=== PATIENT | female | born 1980 | race African-American/Black ===

== ENCOUNTER 2019-07-02 06:00 | Inpatient (IN) | payer OTHER ==
[2019-07-02 07:00] VITALS: BMI 37.8
[2019-07-02] MEDS ORDERED: PHENYLEPHRINE HCL 10 MG/1 ML SINGLE DOSE VIAL ONE (07:21)
[2019-07-02] MEDS ORDERED: SUCCINYLCHOLINE CHLORIDE 200 MG/10 ML SYRINGE ONE (07:21)
[2019-07-02] MEDS ORDERED: PROPOFOL 20 ML ONE (07:21)
[2019-07-02] MEDS ORDERED: ePHEDrine SULFATE 50 MG/1 ML AMPULE ONE (07:21)
[2019-07-02] MEDS ORDERED: morphine SULFATE/PF 0.5 MG/ML (2cc Syringe - QUVA) ONE (07:21)
[2019-07-02] MEDS ORDERED: SODIUM CHLORIDE 0.9% P/F 10 ML VIAL IJ ONE (07:24)
[2019-07-02] MEDS ORDERED: ceFAZolin SODIUM 1 GM VIAL ONE (07:24)
[2019-07-02] MEDS ORDERED: OXYTOCIN 10 UNITS/ML VIAL ONE (07:27)
[2019-07-02] MEDS ORDERED: ACETAMINOPHEN 325 MG TABLET (FP) PO PRN (07:40)
[2019-07-02] MEDS ORDERED: IBUPROFEN 600 MG TABLET (FP) PO PRN (07:40)
[2019-07-02] MEDS ORDERED: ONDANSETRON 4 MG/2 ML VIAL IVPUSH PRN (07:40)
[2019-07-02] MEDS ORDERED: CITRIC ACID/SODIUM CITRATE 30 ML UNIT-DOSE CUP PO ONE ×2 (08:00→10:20)
[2019-07-02] MEDS ORDERED: ELECTROLYTE-148 SOLN 1,000 ML IV ONE (08:00)
[2019-07-02] MEDS ORDERED: OXYTOCIN 20 UNITS in 0.9% NS 40 UNIT/2,000 ML INFUS.BAG IV ONE (08:00)
[2019-07-02] MEDS ORDERED: ELECTROLYTE-148 SOLN 1,000 ML IV SCH (09:00)
[2019-07-02] MEDS ORDERED: METHYLERGONOVINE MALEATE 0.2 MG/1 ML AMP IM PRN (10:21)
[2019-07-02] MEDS ORDERED: oxyCODONE HCL 5 MG TABLET PO PRN ×2 (10:21)
[2019-07-02] MEDS ORDERED: SENNOSIDES/DOCUSATE COMBO (SENNA PLUS) TABLET (UD) PO PRN (10:21)
--- NOTE | 2019-07-02 10:29 | HP ---
Past Medical History - Admission Chief Complaint: repeat lt cs History of Present Illness: repeat lt c s History Source: Patient Limitations to Obtaining History: No Limitations - Past Medical History CRM MARKETING EXECUTIVE: No: Alzheimer's, CVA, Dementia, Migraine, Multiple Sclerosis, Peripheral Neuropathy, Parkinson's, Seizure, Syncope, TIA, Vertigo, Other Cardiovascular: No: AFIB, Aneurysm, Aortic Insufficiency, Aortic Stenosis, CAD, CHF, Deep Vein Thrombosis, HTN, Hyperlipdemia, MA, Mitral Insufficiency, Mitral Stenosis, Murmur, Pulmonary Hypertension, Other Pulmonary: No: Asthma, Bronchitis, Cancer, COPD, O2 Dependent, Pneumonia, Previously Intubated, Pulmonary Embolus, Pulmonary Fibrosis, Sleep Apnea, Other Gastrointestinal: No: Ascites, Cancer, Constipation, Crohn's Disease, Diverticulitis, Diverticulosis, Esophageal Varices, Gastritis, GERD, GI Bleed, Hemorrhoids, Hiatal Hernia, Inflamatory Bowel Disease, Irritable Bowel Disease, Pancreatitis, Peptic Ulcer Disease, Ulcerative Colitis, Other Hepatobiliary: No: Cirrhosis, Cholelithiasis, Cholecystitis, Choledocholithiasis , Hepatitis A, Hepatitis B, Hepatitis C, Other Renal/: No: Renal Failure, Renal Inusuff, BPH, Cancer, Hematuria, Hemodialysis , Neurogenic Bladder, Renal Calculi, UTI, Other Reproductive: No: Ectopic , Endometriosis, Fibroids, PID, Polycystic Ovary Syndrome, Postmenopausal, Other ...: 3 ...Para: 1 ...Term: 1 ...: 0 ...Spon : 0 ...Induced : 0 ...Multiple Gestation: 0 ...EDC by Sono: 07/16/19 Heme/Onc: No: Anemia, B12 Deficiency, Bleeding Disorder, Cancer, Current Chemotherapy, Current Radiation Therapy, Hemochromatosis, Hypercoaguable State, Myeloproliferative Synd, Sickle Cell Disease, Sickle Cell Trait, Thrombocytopenia, Other Infectious Disease: No: AIDS, C-Diff, Herpes Zoster, HIV, MRSA, STD's, Tuberculosis, VREF, Other Psych: No: Addictions, Anxiety, Bipolar, Depression, Panic, Psychosis, Schizophrenia, Other Rheumatology: No: Fibromyalgia, Gout, Lupus, Rheumatoid Arthritis, Sarcoidosis, Vasculitis, Other ENT: No: Allergic Rhinitis, Sinusitis, Other Endocrine: No: [place]'s Disease, Rudolph's Disease, Diabetes Insipidus, Diabetes Mellitus, Hyperparathyroidism, Hyperthyroidism, Hypothyroidism, Osteopenia, SIADH, Other Dermatology: No: Basal Cell, Cellulitis, Eczema, Melanoma, Psoriasis, Squamous Cell, Other - Past Surgical History Past Surgical History: Yes: Hx Myomectomy: No Hx Transabdominal Cerclage: No - Advance Directives Advance Directives: Yes: Living Will - Smoking History Smoking history: Never smoked Have you smoked in the past 12 months: No - Alcohol/Substance Use Hx Alcohol Use: No History of Substance Use: reports: None - Social History Usual Living Arrangement: Yes: With Spouse Do you think of yourself as: Straight/Heterosexual ADL: Independent History of Recent Travel: No Home Medications - Allergies Allergies/Adverse Reactions: Allergies Allergy/AdvReac Type Severity Reaction Status Date / Time No Known Allergies Allergy Verified 07/02/19 06:38 - Home Medications Home Medications: Ambulatory Orders Labetalol HCl [Normodyne -] 200 mg PO BID 07/02/19 Vitamins (Sjr) - 1 tab PO DAILY 07/02/19 Valacyclovir HCl [Valtrex -] 1,000 mg PO DAILY 07/02/19 Family Medical History Family History: Denies Review of Systems - Review of Systems Constitutional: reports: No Symptoms Eyes: reports: No Symptoms HENT: reports: No Symptoms Neck: reports: No Symptoms Cardiovascular: reports: No Symptoms Respiratory: reports: No Symptoms Gastrointestinal: reports: No Symptoms Genitourinary: reports: No Symptoms Breasts: reports: No Symptoms Reported Musculoskeletal: reports: No Symptoms Integumentary: reports: No Symptoms Neurological: reports: No Symptoms Endocrine: reports: No Symptoms Hematology/Lymphatic: reports: No Symptoms Psychiatric: reports: No Symptoms Physical Exam - Maternity Vital Signs: Vital Signs Temperature 98.1 F 07/02/19 07:21 Pulse Rate 81 07/02/19 08:00 Respiratory Rate 18 07/02/19 08:00 Blood Pressure 139/86 07/02/19 08:00 O2 Sat by Pulse Oximetry (%) Constitutional: Yes: Well Nourished, No Distress, Calm Eyes: Yes: WNL, Conjunctiva Clear, EOM Intact HENT: Yes: WNL, Atraumatic, Normocephalic Neck: Yes: WNL, Supple, Trachea Midline Cardiovascular: Yes: WNL, Regular Rate and Rhythm Lungs: Clear to auscultation Breast(s): Yes: WNL - Abdominal Exam/OB Fundal Height: 40 Number of Fetuses: Single Presentation: Vertex Contractions: Yes Regularity: Irregular Intensity: Unaware Monitor Mode: External Heart Rate (range): 150 Heart Rate Location: [facility] Category: I Accelerations: Uniform Decelerations: None - Vaginal Exam/OB Vaginal Bleediing: No Speculum Exam: No Dilatation (cm): 1 Effacement (%): 20 Amniotic Membrane Status: Intact Presentation: Vertex/Position Station: -2 - Physical Exam Musculoskeletal: Yes: WNL Extremities: Yes: WNL Edema: Yes Edema: LUE: 1+, RUE: 1+, LLE: 1+, RLE: 1+ Integumentary: Yes: WNL Deep Tendon Reflex Grade: Normal +2 ...Motor Strength: WNL Psychiatric: Yes: WNL, Alert, Oriented Hemorrhage Risk Assessment - Risk Factors Medium Risk Factors: Yes: Prior , uterine surgery,or multiple laparotomies Risk Score: 1 Risk Level: Medium Risk Assessment/Plan for repeat c s
[2019-07-02] MEDS ORDERED: OXYTOCIN 20 UNITS in 0.9% NS 20 UNIT/1,000 ML INFUS.BAG IV SCH (10:30)
--- NOTE | 2019-07-02 10:31 | OP ---
Operative Note - Note: Operative Date: 07/02/19 Pre-Operative Diagnosis: repeat lt cs Operation: repeat lt c s , lysis of adhesions Findings: adhesions Post-Operative Diagnosis: Same as Pre-op Surgeon: Johnny Dhaliwal Tank Builder And Erector: Neptali Ramachandran Anesthesiologist/KENNEL ATTENDANT: Linda Valenzuela Anesthesia: Spinal Estimated Blood Loss (mls): 700 (lysis of adhesions ) Operative Report Dictated: Yes
[2019-07-02] MEDS: LABETALOL HCL 200 MG TABLET (FP) PO SCH ×2 (11:04→23:28)
[2019-07-02] MEDS: IBUPROFEN 800 MG/8 ML IJ IVPB PRN (15:00)
[2019-07-03] MEDS: IBUPROFEN 800 MG/8 ML IJ IVPB PRN (02:48)
[2019-07-03 08:00] LABS: BASO % 0.5 % (0-2.0); HEMATOCRIT 30.4 % (32.4-45.2); LYMPH % 13.7 % (8-40); MCH 30.7 pg (25.7-33.7); MCHC 36.3 g/dl (32.0-36.0); MEAN CELL VOLUME 84.7 fl (80-96); MEAN PLT VOLUME 9.6 fl (7.5-11.1); MONO % 9.3 % (3.8-10.2); NEUT % 74.5 % (42.8-82.8); PLATELET COUNT 181 K/MM3 (134-434); RBC 3.58 M/mm3 (3.60-5.2); RDW 14.4 % (11.6-15.6); WHITE BLOOD COUNT 8.6 K/mm3 (4.0-10.0)
[2019-07-03] MEDS ORDERED: DIPHTH,PERTUSS(ACELL),TET 0.5 ML DISP.SYRIN IM ONE (10:00)
[2019-07-03] MEDS: ACETAMINOPHEN 325 MG TABLET (FP) PO PRN ×3 (10:15→23:10)
[2019-07-03] MEDS: IBUPROFEN 600 MG TABLET (FP) PO PRN ×3 (10:16→23:09)
[2019-07-03] MEDS: LABETALOL HCL 200 MG TABLET (FP) PO SCH ×2 (10:19→22:55)
[2019-07-03] MEDS ORDERED: BISACODYL 10 MG SUPP.RECT RC PRN (10:21)
[2019-07-03] MEDS: SIMETHICONE 80 MG TAB.CHEW (FP) PO PRN ×3 (10:24→23:09)
[2019-07-03] MEDS: ENOXAPARIN NA (PORCINE) 40 MG/0.4 ML DISP.SYRIN SQ SCH (10:28)
--- NOTE | 2019-07-03 14:38 | PN ---
Post Progress Note Post Day: 1 Type of Delivery: Repeat C/S Vital Signs: Vital Signs Temperature 98 F 07/03/19 09:00 Pulse Rate 70 07/03/19 09:00 Respiratory Rate 18 07/03/19 09:00 Blood Pressure 136/84 07/03/19 09:00 O2 Sat by Pulse Oximetry (%) 99 07/02/19 11:30 Breast Exam: Yes: Soft Uterus: Yes: Fundus Firm Incision: Yes: Dressing dry and intact, Sutures intact Abdomen/GI: Yes: Abdomen soft, Passing flatus, Tolerating PO Lochia: Yes: Serosa Lochia, amount: Small Extremities: Yes: Calves non-tender Perineum: Yes: Intact Activity: Ambulating - Labs Labs: CBC WBC 8.6 K/mm3 (4.0-10.0) 07/03/19 07:40 RBC 3.58 M/mm3 (3.60-5.2) L 07/03/19 07:40 Hgb 11.0 GM/dL (10.7-15.3) 07/03/19 07:40 Hct 30.4 % (32.4-45.2) L 07/03/19 07:40 MCV 84.7 fl (80-96) 07/03/19 07:40 MCH 30.7 pg (25.7-33.7) 07/03/19 07:40 MCHC 36.3 g/dl (32.0-36.0) H 07/03/19 07:40 RDW 14.4 % (11.6-15.6) 07/03/19 07:40 Plt Count 181 K/MM3 (134-434) 07/03/19 07:40 MPV 9.6 fl (7.5-11.1) 07/03/19 07:40 Absolute Neuts (auto) 6.4 K/mm3 (1.5-8.0) 07/03/19 07:40 Neutrophils % 74.5 % (42.8-82.8) D 07/03/19 07:40 Lymphocytes % 13.7 % (8-40) D 07/03/19 07:40 Monocytes % 9.3 % (3.8-10.2) 07/03/19 07:40 Eosinophils % 2.0 % (0-4.5) 07/03/19 07:40 Basophils % 0.5 % (0-2.0) 07/03/19 07:40 Nucleated RBC % 0 % (0-0) 07/03/19 07:40
--- NOTE | 2019-07-04 08:37 | PN ---
Post Progress Note Post Day: 2 Type of Delivery: Repeat C/S Vital Signs: Vital Signs Temperature 98.4 F 07/03/19 22:00 Pulse Rate 85 07/03/19 22:00 Respiratory Rate 20 07/03/19 22:00 Blood Pressure 114/74 07/03/19 22:00 O2 Sat by Pulse Oximetry (%) 99 07/02/19 11:30 Breast Exam: Yes: Soft Uterus: Yes: Fundus Firm, Fundus below umbilicus, Non-tender Incision: Yes: Dressing dry and intact, Sutures intact Abdomen/GI: Yes: Abdomen soft, Passing flatus, Tolerating PO Lochia: Yes: Serosa Lochia, amount: Small Extremities: Yes: Calves non-tender Perineum: Yes: Intact Activity: Ambulating - Labs Labs: CBC WBC 8.6 K/mm3 (4.0-10.0) 07/03/19 07:40 RBC 3.58 M/mm3 (3.60-5.2) L 07/03/19 07:40 Hgb 11.0 GM/dL (10.7-15.3) 07/03/19 07:40 Hct 30.4 % (32.4-45.2) L 07/03/19 07:40 MCV 84.7 fl (80-96) 07/03/19 07:40 MCH 30.7 pg (25.7-33.7) 07/03/19 07:40 MCHC 36.3 g/dl (32.0-36.0) H 07/03/19 07:40 RDW 14.4 % (11.6-15.6) 07/03/19 07:40 Plt Count 181 K/MM3 (134-434) 07/03/19 07:40 MPV 9.6 fl (7.5-11.1) 07/03/19 07:40 Absolute Neuts (auto) 6.4 K/mm3 (1.5-8.0) 07/03/19 07:40 Neutrophils % 74.5 % (42.8-82.8) D 07/03/19 07:40 Lymphocytes % 13.7 % (8-40) D 07/03/19 07:40 Monocytes % 9.3 % (3.8-10.2) 07/03/19 07:40 Eosinophils % 2.0 % (0-4.5) 07/03/19 07:40 Basophils % 0.5 % (0-2.0) 07/03/19 07:40 Nucleated RBC % 0 % (0-0) 07/03/19 07:40 Assessment/Plan oob
[2019-07-04] MEDS: SIMETHICONE 80 MG TAB.CHEW (FP) PO PRN ×3 (09:38→23:49)
[2019-07-04] MEDS: ACETAMINOPHEN 325 MG TABLET (FP) PO PRN ×3 (09:38→23:50)
[2019-07-04] MEDS: IBUPROFEN 600 MG TABLET (FP) PO PRN ×3 (09:40→23:49)
[2019-07-04] MEDS: ENOXAPARIN NA (PORCINE) 40 MG/0.4 ML DISP.SYRIN SQ SCH (09:40)
[2019-07-04] MEDS: LABETALOL HCL 200 MG TABLET (FP) PO SCH ×2 (09:40→21:18)
--- NOTE | 2019-07-04 16:06 | PATH ---
Surgical Pathology Report Patient Name: PAULO LEONARD Med. Rec. #: [id number] /Age/Gender: 1980 (Age: 38) / F Account: [id number] Location: [facility] OBS/CLAIMS ASSISTANT Taken: 07/02/2019 Received: 07/03/2019 Reported: 07/04/2019 Physicians: Johnny Dhaliwal MD Specimen(s) Received PLACENTA Clinical History , 38 weeks for repeat History of HSV 2-ASCUS, asthma, chronic hypertension Final Diagnosis PLACENTA: THIRD TRIMESTER PLACENTA. TRIVASCULAR CORD. MEMBRANES WITH NO DIAGNOSTIC ABNORMALITIES. Electronically Signed Мария Marrero M.D. Gross Description The specimen is received fresh labeled placenta and is a 351 gram, 14.5 x 12.5 x 2.8 cm. placenta with attached membranes and umbilical cord. The attached membranes are moran, translucent with focal opacities and insert marginally. The umbilical cord measures 37 cm. in length and averages 1.2 cm. in diameter. The cord inserts eccentrically, 1.5 cm. to the nearest margin. No true knots or strictures are identified. Cut surface of the umbilical cord reveals 3 vessels. The surface is hernandez-blue with minimal fibrin deposition and appropriate caliber vessels. The maternal surface is red-brown with focal defects. Sectioning reveals red-brown, spongy parenchyma. No lesions are identified. [employer] sections are submitted in three cassettes as follows: 1- membrane rolls and umbilical cord; 2-3- full thickness sections of placenta. /07/03/2019 saudi/07/03/2019
--- NOTE | 2019-07-04 23:33 | OP ---
DATE OF OPERATION: 07/02/2019 PREOPERATIVE DIAGNOSIS: Repeat transverse section. POSTOPERATIVE DIAGNOSIS: Repeat transverse section. Lysis of adhesions. SURGEON: Johnny Dhaliwal MD. SAFETY COUNCIL DIRECTOR: CARY Haskins. BLOOD LOSS: Approximately 100 mL. PATHOLOGY: Placenta. ANESTHESIA: Spinal. ANESTHESIOLOGIST: Linda Valenzuela MD. INDICATION: A 38-year-old female patient, history of chronic high blood pressure on labetalol, and the patient is 38 weeks , had a previous low transverse section, taken to the OR for repeat low transverse section. All risks and benefits, alternatives explained to the patient. DESCRIPTION OF PROCEDURE: Patient was taken to the OR, and after spinal anesthesia was obtained, patient was placed on operating table in supine position. Patient's abdomen and pelvis were prepped and draped in the usual sterile manner. Pfannenstiel incision was made. The incision was made through skin, subcutaneous tissue, until the fascia was nicked in the midline. The fascia was extended bilaterally. However, after the fascia was opened, attempt to get into the peritoneum, and after peritoneum was entered, there was no peritoneum seen, and the fascia was adhesed to the fundus part of the uterus, and which adhesion was lysed away from the fascia. Uterus and the fascia were lysed away the adhesion. After lysis of adhesion, we found lower segment area of uterus, then we found by the fascia bilaterally, we were able to find a lower segment of the uterus, so the lower segment of the uterus was entered. Baby delivered from LOT position. Baby was handed over to the examining chair assembler after umbilical cord was doubly clamped and cut. Cord blood gas was obtained. Placenta was removed. Uterus was closed in single layer, first layer interlocking Vicryl suture, good hemostasis, and both gutters were cleaned. Both ovaries, fallopian tubes, uterus were within normal limits, no complications. Patient tolerated the procedure well. . We tried to create peritoneum. Peritoneum was closed. Fascia was closed. Skin was closed, and draining clear urine. Blood loss was about 700 mL. No complications. Patient transferred to recovery room in stable condition. MD JOANIE CABA/[id number]
[2019-07-05] MEDS: ENOXAPARIN NA (PORCINE) 40 MG/0.4 ML DISP.SYRIN SQ SCH (09:56)
[2019-07-05] MEDS: LABETALOL HCL 200 MG TABLET (FP) PO SCH ×2 (09:56→21:26)
[2019-07-05] MEDS: SIMETHICONE 80 MG TAB.CHEW (FP) PO PRN ×2 (12:50→21:25)
[2019-07-05] MEDS: IBUPROFEN 600 MG TABLET (FP) PO PRN ×2 (12:50→21:25)
[2019-07-05] MEDS: ACETAMINOPHEN 325 MG TABLET (FP) PO PRN ×2 (12:51→21:26)
--- NOTE | 2019-07-05 13:25 | PN ---
Post Progress Note Post Day: 3 Type of Delivery: Repeat C/S Vital Signs: Vital Signs Temperature 98.0 F 07/05/19 10:00 Pulse Rate 100 H 07/05/19 10:00 Respiratory Rate 18 07/05/19 10:00 Blood Pressure 141/96 07/05/19 10:00 O2 Sat by Pulse Oximetry (%) 99 07/02/19 11:30 Breast Exam: Yes: Soft Uterus: Yes: Fundus Firm, Fundus below umbilicus Incision: Yes: Dressing dry and intact, Sutures intact Abdomen/GI: Yes: Abdomen soft, Passing flatus, Tolerating PO Lochia: Yes: Serosa Lochia, amount: Small Extremities: Yes: Calves non-tender Perineum: Yes: Intact Activity: Ambulating (dc pt home tomorrow ) - Labs Labs: CBC WBC 8.6 K/mm3 (4.0-10.0) 07/03/19 07:40 RBC 3.58 M/mm3 (3.60-5.2) L 07/03/19 07:40 Hgb 11.0 GM/dL (10.7-15.3) 07/03/19 07:40 Hct 30.4 % (32.4-45.2) L 07/03/19 07:40 MCV 84.7 fl (80-96) 07/03/19 07:40 MCH 30.7 pg (25.7-33.7) 07/03/19 07:40 MCHC 36.3 g/dl (32.0-36.0) H 07/03/19 07:40 RDW 14.4 % (11.6-15.6) 07/03/19 07:40 Plt Count 181 K/MM3 (134-434) 07/03/19 07:40 MPV 9.6 fl (7.5-11.1) 07/03/19 07:40 Absolute Neuts (auto) 6.4 K/mm3 (1.5-8.0) 07/03/19 07:40 Neutrophils % 74.5 % (42.8-82.8) D 07/03/19 07:40 Lymphocytes % 13.7 % (8-40) D 07/03/19 07:40 Monocytes % 9.3 % (3.8-10.2) 07/03/19 07:40 Eosinophils % 2.0 % (0-4.5) 07/03/19 07:40 Basophils % 0.5 % (0-2.0) 07/03/19 07:40 Nucleated RBC % 0 % (0-0) 07/03/19 07:40
--- NOTE | 2019-07-05 13:28 | DS ---
Physical Exam-CORE SUCKER Vital Signs: Vital Signs Temperature 98.0 F 07/05/19 10:00 Pulse Rate 100 H 07/05/19 10:00 Respiratory Rate 18 07/05/19 10:00 Blood Pressure 141/96 07/05/19 10:00 O2 Sat by Pulse Oximetry (%) 99 07/02/19 11:30 Constitutional: Yes: Well Nourished, No Distress, Calm Eyes: Yes: WNL, Conjunctiva Clear, EOM Intact HENT: Yes: WNL, Atraumatic, Normocephalic Neck: Yes: WNL, Supple, Trachea Midline Cardiovascular: Yes: WNL, Regular Rate and Rhythm Respiratory: Yes: WNL, Regular, CTA Bilaterally Gastrointestinal: Yes: WNL, Normal Bowel Sounds, Soft ...Rectal Exam: Yes: WNL Renal/: Yes: WNL Pelvis: Yes: WNL Internal Exam Deferred: Yes Vaginal Exam: Yes: Normal Cervix: Yes: Normal Uterus: Yes: Normal Adnexa: Normal: Bilateral ....Post : Yes: Uterus firm, Uterus non-tender Breast(s): Yes: WNL Musculoskeletal: Yes: WNL Extremities: Yes: WNL Edema: Yes Edema: LUE: 1+, RUE: 1+, LLE: 1+, RLE: 1+ Integumentary: Yes: WNL Wound/Incision: Yes: Clean/Dry, Well Approximated Neurological: Yes: WNL, Alert, Oriented ...Motor Strength: WNL Psychiatric: Yes: WNL, Alert, Oriented Labs: CBC, BMP 07/03/19 07:40 Delivery - Delivery Section: Repeat Type of Anesthesia: Spinal Episiotomy/Laceration: None EBL (cc): 700 Delivery, Single - Stages of Labor Date of Delivery: 07/02/19 Time of Delivery: 08:50 Time Placenta Delivered: 08:51 - Condition of Site Director/Trouble Locater Present: Yes Name: Chinyere Herman Infant Gender: Male Weight: 2.75 kg Position: Left, OA Total Hours ROM (Hrs/Mins): 0/2 - 1 Minute Total Score: 8 5 Minutes Total Score: 9 - [place] Feeding Plan Initial Plan: Exclusive throughout hospitalization Discharge Summary Problems reviewed: Yes Reason For Visit: REPEAT C/SECTION Procedures: Principal: repeat lt c s Other Procedures: none Hospital Course: uneventful Health Concerns: none Plan of Treatment: oob as much as possible Goals: return to work in 8 weeks Condition: Good - Instructions Diet, Activity, Other Instructions: Physical activity Resume your normal everyday activity as tolerated no heavy lifting or exercise until seen by your surgeon. You may walk unlimited shannon of and climb stairs. You may resume driving the car when you feel safe and comfortable behind the wheel. No sexual activity as instructed. Wound care If you have a bandage, leave it on, and keep dry for 48-72 hours. After that time discard the outer bandage. If they are tapes on the skin under the out of bandage leave them in place. They will peel off in the next 7 to 10 days. Do Not Peel them off. You may shower the day after surgery. If there are tapes present on the skin, you may shower over them. Diet There are no dietary restrictions. Eat healthy, high-fiber foods. Drink 6 to 8 glasses of liquid each day. This will assist in keeping your bowels are regular. Pain management You may take Tylenol or acetaminophen or Ibuprofen (for example, Motrin, Advil etc.) from my pain prescription medication is ordered should be taken as prescribed for moderate to severe pain. Call MD for any of the following: call dr rodas for 2 weeks appointment Severe pain not relieved by medication Fever of 101 or higher Excessive bleeding or drainage on dressing Inability to urinate Referrals: Johnny Dhaliwal MD [Staff Physician] - Disposition: HOME - Home Medications Comprehensive Discharge Medication List: Ambulatory Orders Labetalol HCl [Normodyne -] 200 mg PO BID 07/02/19 Vitamins (Sjr) - 1 tab PO DAILY 07/02/19 Valacyclovir HCl [Valtrex -] 1,000 mg PO DAILY 07/02/19 Prescription Drug Monitoring Program (I-STOP) results: I-STOP reviewed and no issues identified
[2019-07-06] MEDS: LABETALOL HCL 200 MG TABLET (FP) PO SCH (10:37)
[2019-07-06] MEDS: ENOXAPARIN NA (PORCINE) 40 MG/0.4 ML DISP.SYRIN SQ SCH (10:37)
[2019-07-06 14:43] VITALS: BP 139/92; PULSE 94; TEMP 98.5
[2019-07-06] MEDS: IBUPROFEN 600 MG TABLET (FP) PO PRN (15:39)
[2019-07-06] MEDS: SIMETHICONE 80 MG TAB.CHEW (FP) PO PRN (15:39)
[2019-07-06] MEDS: ACETAMINOPHEN 325 MG TABLET (FP) PO PRN (15:39)
== END 2019-07-06 18:30 | disposition home or self-care (01) | DRG 788 ==
LOC: JLDR 06:00 → J3W 12:16
PROVIDERS: ADMIT Obstetrics & Gynecology; ATTEND Obstetrics & Gynecology
PROC: 10D00Z1 Extraction of Products of Conception, Low, Open Approach (ICD-10-PCS; principal; 2019-07-02)
PROC: 0DNW0ZZ Release Peritoneum, Open Approach (ICD-10-PCS; 2019-07-02)
DX: O34.211 Maternal care for low transverse scar from previous cesarean delivery (principal); O99.62 Diseases of the digestive system complicating childbirth; K66.0 Peritoneal adhesions (postprocedural) (postinfection); O16.4 Unspecified maternal hypertension, complicating childbirth; Z3A.38 38 weeks gestation of pregnancy; Z37.0 Single live birth
CPT/HCPCS: 36415; 85025; 88307-TC; 90715

== ENCOUNTER 2021-11-25 11:20 | Inpatient (IN) | payer OTHER ==
[2021-11-25] MEDS: DEXTROSE 5%-LACTATED RINGERS 1,000 ML IV SCH (11:30)
[2021-11-25 12:21] VITALS: BMI 37.0
[2021-11-25] MEDS ORDERED: ONDANSETRON 4 MG/2 ML VIAL ONE (12:48)
[2021-11-25] MEDS ORDERED: OXYTOCIN 10 UNITS/ML VIAL ONE (12:48)
[2021-11-25] MEDS ORDERED: morphine SULFATE/PF 1 MG/2 ML (2cc Syringe - QUVA) ONE (12:48)
[2021-11-25] MEDS ORDERED: PHENYLEPHRINE HCL 10 MG/1 ML SINGLE DOSE VIAL ONE (12:48)
[2021-11-25] MEDS ORDERED: ONDANSETRON 4 MG/2 ML VIAL IVPUSH PRN (15:02)
[2021-11-25] MEDS ORDERED: OXYTOCIN 20 UNITS in 0.9% NS 20 UNIT/1,000 ML INFUS.BAG IV ONE (15:04)
[2021-11-25] MEDS ORDERED: METHYLERGONOVINE MALEATE 0.2 MG/1 ML AMP IM PRN (16:31)
[2021-11-25] MEDS ORDERED: ACETAMINOPHEN 325 MG TABLET (FP) PO PRN (16:31)
[2021-11-25] MEDS ORDERED: OXYTOCIN 20 UNITS in 0.9% NS 20 UNIT/1,000 ML INFUS.BAG IV SCH (16:45)
[2021-11-25] MEDS: IBUPROFEN 800 MG/8 ML IJ IVPB PRN (21:40)
[2021-11-25] MEDS: LABETALOL HCL 100 MG TABLET (FP) PO SCH (21:55)
[2021-11-25] MEDS: SIMETHICONE 80 MG TAB.CHEW (FP) PO PRN (21:55)
[2021-11-26] MEDS ORDERED: oxyCODONE HCL 5 MG TABLET PO PRN (04:31)
[2021-11-26] MEDS: IBUPROFEN 800 MG/8 ML IJ IVPB PRN (06:34)
[2021-11-26 07:23] LABS: BASO % 0.4 % (0-2.0); EOS % 1.7 % (0-4.5); HEMATOCRIT 33.3 % (32.4-45.2); HEMOGLOBIN 11.8 GM/dL (10.7-15.3); LYMPH % 7.7 % (8-40); MCH 29.4 pg (25.7-33.7); MCHC 35.2 g/dl (32.0-36.0); MEAN CELL VOLUME 83.5 fl (80-96); MEAN PLT VOLUME 9.3 fl (7.5-11.1); MONO % 10.3 % (3.8-10.2); NEUT % 79.9 % (42.8-82.8); PLATELET COUNT 168 10^3/uL (134-434); RBC 3.99 M/mm3 (3.60-5.2); WHITE BLOOD COUNT 8.7 K/mm3 (4.0-10.0)
[2021-11-26] MEDS: PRENATAL VITAMINS W/ FOLIC ACID TABLET (FP) PO SCH (09:18)
[2021-11-26] MEDS: LABETALOL HCL 100 MG TABLET (FP) PO SCH ×2 (09:18→21:17)
[2021-11-26] MEDS: IBUPROFEN 600 MG TABLET (FP) PO PRN ×2 (15:10→21:17)
[2021-11-26] MEDS: SIMETHICONE 80 MG TAB.CHEW (FP) PO PRN ×2 (15:10→21:17)
[2021-11-26] MEDS ORDERED: BISACODYL 10 MG SUPP.RECT RC PRN (16:31)
[2021-11-26] MEDS: oxyCODONE HCL 5 MG TABLET PO PRN (16:31)
[2021-11-26] MEDS: SENNOSIDES/DOCUSATE COMBO (SENNA PLUS) TABLET (UD) PO PRN (21:17)
[2021-11-27] MEDS: IBUPROFEN 600 MG TABLET (FP) PO PRN ×3 (03:10→17:15)
[2021-11-27] MEDS: PRENATAL VITAMINS W/ FOLIC ACID TABLET (FP) PO SCH (09:49)
[2021-11-27] MEDS: LABETALOL HCL 100 MG TABLET (FP) PO SCH ×2 (09:49→21:01)
[2021-11-27] MEDS: SIMETHICONE 80 MG TAB.CHEW (FP) PO PRN ×2 (09:49→20:41)
[2021-11-27] MEDS: oxyCODONE HCL 5 MG TABLET PO PRN ×2 (11:20→20:42)
[2021-11-27] MEDS: DEXTROSE 5%-LACTATED RINGERS 1,000 ML IV SCH (19:31)
[2021-11-27] MEDS: SENNOSIDES/DOCUSATE COMBO (SENNA PLUS) TABLET (UD) PO PRN (20:42)
[2021-11-28] MEDS: SIMETHICONE 80 MG TAB.CHEW (FP) PO PRN (03:53)
[2021-11-28] MEDS: oxyCODONE HCL 5 MG TABLET PO PRN ×2 (03:53→09:43)
[2021-11-28] MEDS: IBUPROFEN 600 MG TABLET (FP) PO PRN (06:16)
[2021-11-28] MEDS: PRENATAL VITAMINS W/ FOLIC ACID TABLET (FP) PO SCH (09:43)
[2021-11-28] MEDS: LABETALOL HCL 100 MG TABLET (FP) PO SCH (09:43)
[2021-11-28 11:41] VITALS: BP 123/68; PULSE 89; TEMP 98.3
== END 2021-11-28 11:30 | disposition home or self-care (01) | DRG 784 ==
LOC: JLDR 11:20 → J3W 16:15
PROVIDERS: ADMIT Obstetrics & Gynecology; ATTEND Obstetrics & Gynecology
PROC: 10D00Z1 Extraction of Products of Conception, Low, Open Approach (ICD-10-PCS; principal; 2021-11-25)
PROC: 0UL70ZZ Occlusion of Bilateral Fallopian Tubes, Open Approach (ICD-10-PCS; 2021-11-25)
DX: O34.211 Maternal care for low transverse scar from previous cesarean delivery (principal); O10.92 Unspecified pre-existing hypertension complicating childbirth; O99.892 Other specified diseases and conditions complicating childbirth; N73.6 Female pelvic peritoneal adhesions (postinfective); Z30.2 Encounter for sterilization; Z3A.38 38 weeks gestation of pregnancy; Z37.0 Single live birth
CPT/HCPCS: 36415; 85025; 88302-TC; 88307-TC